=== PATIENT | male | born 1950 | race Caucasian/White ===

== ENCOUNTER 2019-05-30 11:22 | Inpatient (IN) | payer MEDICARE, MEDICAID ==
[~2019-05-30] VITALS: Ht 182.9 cm; Wt 93.6 kg
[2019-05-30 13:15] LABS: Basophils # (auto) 0 uL; Basophils % (auto) 0.5 % (0.0-2.0); Eosinophils # (auto) 0.1 uL; Eosinophils % (auto) 1.3 % (0.0-7.0); Hematocrit 42.6 % (41.0-53.0); Lymphocytes # (auto) 0.7 uL; Lymphocytes % (auto) 12.4 % (10.0-50.0); Mean Corpuscular Hemoglobin 32.3 pg (28.0-32.0); Mean Corpuscular Hgb Conc. 32.8 g/dL (32.0-36.0); Mean Corpuscular Volume 98.5 fL (80.0-100.0); Monocytes # (auto) 0.7 uL; Monocytes % (auto) 12.7 % (0.0-12.0); Neutrophils # (auto) 4.1 uL; Neutrophils % (auto) 73.1 % (37.0-80.0); Nucleated Red Blood Cells % 0.1 %; Platelet Count (auto) 282 10^3/uL (140-450); Red Blood Cells 4.33 10^6/uL (4.5-5.90); Red Cell Distribution Width 16.7 % (11.8-14.3); White Blood Cell 5.6 10^3/uL (4.4-10.8)
[2019-05-30 13:33] LABS: Albumin 3.4 g/dL (3.4-5.0); BUN/Creatinine Ratio 18.7; Calcium 8.6 mg/dL (8.5-10.1); INR 0.98 (0.9-1.15); Partial Thromboplastin Time 32.8 sec (23.64-32.05); Potassium 3.8 mmol/L (3.5-5.1)
[2019-05-30 13:36] LABS: Bilirubin, Total 0.4 mg/dL (0.2-1.0); Total Protein 7.1 g/dL (6.4-8.2)
[2019-05-30] MEDS ORDERED: MORPHINE SULF INJ 2 MG/ML SYRINGE 1ML ONE (15:14)
[2019-05-30] MEDS ORDERED: MORPHINE SULF INJ 2 MG/ML SYRINGE 1ML IM ONE (15:15)
[2019-05-30] MEDS: SODIUM CHLORIDE 0.9% 1,000 ML IV SCH (15:18)
[2019-05-30] MEDS ORDERED: NITROGLYCERIN 0.4 MG SL TAB SL PRN (15:30)
[2019-05-30] MEDS ORDERED: DEXTROSE (50%) 50ML SYRG IV PRN (15:30)
[2019-05-30] MEDS ORDERED: THIAMINE 100mg/ml INJ (200mg/2ml VIAL) IV ONE (15:30)
[2019-05-30] MEDS ORDERED: PROMETHAZINE HCL 25 MG/ML 1ML IV PRN (15:30)
[2019-05-30] MEDS ORDERED: ALBUTEROL SULF 2.5 MG/0.5ML(0.5%) NEB SOLN NEB PRN (15:30)
[2019-05-30] MEDS ORDERED: MORPHINE SULF INJ 2 MG/ML SYRINGE 1ML IV PRN (15:30)
[2019-05-30] MEDS ORDERED: ACETAMINOPHEN 500 MG TAB PO PRN (15:30)
[2019-05-30] MEDS ORDERED: LACTULOSE 20Gm/30ML SOLN PO PRN (15:30)
[2019-05-30] MEDS ORDERED: chlordiazePOXIDE HCL 25 MG CAP PO PRN (15:30)
[2019-05-30 15:57] VITALS: BP 128/74
[2019-05-30 16:31] LABS: Urine Bacteria NONE SEEN /hpf (None Seen); Urine Blood TRACE /uL (Negative); Urine Specific Gravity 1.011 (1.001-1.035); Urine WBC 1 /hpf (0 - 3)
[2019-05-30] MEDS: InsuLIN REG 1unit/0.01ml Soln (100units/ml) SC SCH ×2 (17:00→22:00)
[2019-05-30] MEDS: ACCU-CHEK COMFORT CURVE STRIP VI SCH ×2 (17:00→22:27)
[2019-05-30] MEDS: DOXYCYCLINE 100MG/250ML 250 ML IV SCH (17:11)
[2019-05-30] MEDS: chlordiazePOXIDE HCL 5 MG CAP PO SCH (18:00)
[2019-05-30] MEDS: IPRATROPIUM BROM 0.5 MG/2.5ML INH SOL NEB SCH (18:23)
[2019-05-30] MEDS: ALBUTEROL SULF 2.5 MG/0.5ML(0.5%) NEB SOLN NEB SCH (18:23)
[2019-05-30] MEDS: MORPHINE SULFATE 4 MG/ML SYR/VIAL IV PRN (20:54)
[2019-05-30 22:00] VITALS: BP 123/74
[2019-05-30 22:50] VITALS: BP 123/74
[2019-05-31] MEDS: chlordiazePOXIDE HCL 5 MG CAP PO SCH ×5 (00:03→23:17)
[2019-05-31] MEDS: HYDROcodone-ACET 5/325MG TAB PO PRN (00:03)
[2019-05-31] MEDS: ALBUTEROL SULF 2.5 MG/0.5ML(0.5%) NEB SOLN NEB SCH ×4 (00:11→18:20)
[2019-05-31] MEDS: IPRATROPIUM BROM 0.5 MG/2.5ML INH SOL NEB SCH ×4 (00:11→18:20)
[2019-05-31] MEDS: SODIUM CHLORIDE 0.9% 1,000 ML IV SCH ×3 (01:18→21:48)
[2019-05-31] MEDS: MORPHINE SULFATE 4 MG/ML SYR/VIAL IV PRN ×6 (01:32→23:17)
[2019-05-31] MEDS: DOXYCYCLINE 100MG/250ML 250 ML IV SCH ×2 (03:04→14:57)
[2019-05-31 05:00] VITALS: BP 131/84
[2019-05-31] MEDS: ACCU-CHEK COMFORT CURVE STRIP VI SCH ×4 (06:37→21:48)
[2019-05-31] MEDS: InsuLIN REG 1unit/0.01ml Soln (100units/ml) SC SCH ×4 (06:37→21:48)
[2019-05-31 08:56] VITALS: BP 158/94
[2019-05-31] MEDS: THIAMINE 100mg/ml INJ (200mg/2ml VIAL) IV SCH (10:19)
[2019-05-31 12:22] VITALS: BP 109/67
[2019-05-31 17:00] VITALS: BP 113/82
[2019-05-31 21:19] VITALS: BP 132/78
[2019-06-01] MEDS ORDERED: ALBUTEROL SULF 2.5 MG/0.5ML(0.5%) NEB SOLN ONE ×3 (00:09→10:01)
[2019-06-01] MEDS ORDERED: IPRATROPIUM BROM 0.5 MG/2.5ML INH SOL ONE ×2 (00:09→06:29)
[2019-06-01] MEDS: IPRATROPIUM BROM 0.5 MG/2.5ML INH SOL NEB SCH ×4 (00:21→17:36)
[2019-06-01] MEDS: ALBUTEROL SULF 2.5 MG/0.5ML(0.5%) NEB SOLN NEB SCH ×4 (00:21→17:36)
[2019-06-01] MEDS: DOXYCYCLINE 100MG/250ML 250 ML IV SCH ×2 (03:20→17:06)
[2019-06-01] MEDS: MORPHINE SULFATE 4 MG/ML SYR/VIAL IV PRN ×3 (04:06→21:22)
[2019-06-01 04:35] VITALS: BP 125/87
[2019-06-01] MEDS: HYDROcodone-ACET 5/325MG TAB PO PRN ×2 (05:10→12:02)
[2019-06-01] MEDS: chlordiazePOXIDE HCL 5 MG CAP PO SCH ×4 (06:00→23:37)
[2019-06-01] MEDS: ACCU-CHEK COMFORT CURVE STRIP VI SCH ×4 (06:31→21:38)
[2019-06-01] MEDS: InsuLIN REG 1unit/0.01ml Soln (100units/ml) SC SCH ×4 (06:32→21:38)
[2019-06-01] MEDS: SODIUM CHLORIDE 0.9% 1,000 ML IV SCH ×2 (07:18→17:57)
[2019-06-01 08:30] VITALS: BP 135/80
[2019-06-01] MEDS ORDERED: ceFAZolin 1GM/50ML 50 ML IV ONE (08:36)
[2019-06-01] MEDS ORDERED: SUCCINYLCHOLINE CHLORIDE 20 MG/ML 10ML VIAL IV ONE (08:45)
[2019-06-01] MEDS ORDERED: MIDAZOLAM HCL 1MG/1ML-2 ML VIAL ONE (08:46)
[2019-06-01] MEDS ORDERED: ROCURONIUM 10MG/ML 10ML VIAL IV ONE (08:46)
[2019-06-01] MEDS ORDERED: GLYCOPYRROLATE 0.2 MG/ML 1ML VIAL IV ONE (08:46)
[2019-06-01] MEDS ORDERED: NEOSTIGMINE 1 MG/ML INJ (10mg/10ML VIAL) IV ONE (08:46)
[2019-06-01] MEDS ORDERED: fentaNYL CITRATE 100 MCG/2 ML VL ONE (08:46)
[2019-06-01] MEDS ORDERED: PROPOFOL 10 MG/ML 20 ML IV ONE (08:57)
[2019-06-01] MEDS: THIAMINE 100mg/ml INJ (200mg/2ml VIAL) IV SCH (09:42)
[2019-06-01] MEDS ORDERED: ePHEDrine SULFATE 50 MG/ML AMP IV PRN (10:00)
[2019-06-01] MEDS ORDERED: hydrALAZINE HCL 20 MG/ML VL IV PRN (10:00)
[2019-06-01] MEDS ORDERED: MORPHINE SULFATE 4 MG/ML SYR/VIAL IV PRN (10:00)
[2019-06-01] MEDS ORDERED: ONDANSETRON HCL 4 MG/2 ML VIAL IV PRN (10:00)
[2019-06-01 12:52] VITALS: BP 104/61
[2019-06-01 16:45] VITALS: BP 115/79
[2019-06-01 21:56] VITALS: BP 117/74
[2019-06-02] MEDS: IPRATROPIUM BROM 0.5 MG/2.5ML INH SOL NEB SCH ×5 (01:21→23:39)
[2019-06-02] MEDS: ALBUTEROL SULF 2.5 MG/0.5ML(0.5%) NEB SOLN NEB SCH ×5 (01:21→23:39)
[2019-06-02] MEDS: MORPHINE SULFATE 4 MG/ML SYR/VIAL IV PRN ×6 (01:30→21:50)
[2019-06-02] MEDS: DOXYCYCLINE 100MG/250ML 250 ML IV SCH (03:22)
[2019-06-02] MEDS: SODIUM CHLORIDE 0.9% 1,000 ML IV SCH ×3 (03:23→21:52)
[2019-06-02] MEDS: HYDROcodone-ACET 5/325MG TAB PO PRN ×3 (04:16→17:14)
[2019-06-02 05:08] VITALS: BP 112/71
[2019-06-02] MEDS: ACCU-CHEK COMFORT CURVE STRIP VI SCH ×4 (06:20→21:53)
[2019-06-02] MEDS: chlordiazePOXIDE HCL 5 MG CAP PO SCH ×3 (06:20→17:38)
[2019-06-02] MEDS: InsuLIN REG 1unit/0.01ml Soln (100units/ml) SC SCH ×4 (06:20→22:17)
[2019-06-02 08:48] VITALS: BP 108/74
[2019-06-02] MEDS: THIAMINE 100mg/ml INJ (200mg/2ml VIAL) IV SCH (09:29)
[2019-06-02] MEDS: ENOXAPARIN SOD 40 MG/0.4 ML SYRINGE SC SCH (10:08)
[2019-06-02 10:41] VITALS: BP 108/74
[2019-06-02 10:50] LABS: Hematocrit 36.2 % (41.0-53.0); Hemoglobin 11.7 g/dL (13.5-17.5); Mean Corpuscular Hemoglobin 32.4 pg (28.0-32.0); Mean Corpuscular Hgb Conc. 32.4 g/dL (32.0-36.0); Platelet Count (auto) 196 10^3/uL (140-450); Red Blood Cells 3.61 10^6/uL (4.5-5.90); White Blood Cell 6.4 10^3/uL (4.4-10.8)
[2019-06-02 10:53] LABS: Basophils % (manual) 0 (0.0-2.0); Blast Cells 0; Eosinophils % (manual) 0 (0-7); Metamyelocytes % 0; Myelocytes % 0; Promyelocytes % 0; Reactive Lymphocytes 0
[2019-06-02 12:06] LABS: Band Neutrophils % (manual) 1; Lymphocytes % (manual) 14 (10.0-50.0); Monocytes % (manual) 15 (0-12)
[2019-06-02 12:30] VITALS: BP 113/75
[2019-06-02 17:00] VITALS: BP 136/90
[2019-06-02] MEDS: DOXYCYCLINE 100 MG TAB/CAP PO SCH (21:49)
[2019-06-02 22:00] VITALS: BP 119/78
[2019-06-02] MEDS: NICOTINE 14 MG/24HR TOPICAL PATCH TD SCH (22:16)
[2019-06-03] MEDS: MORPHINE SULFATE 4 MG/ML SYR/VIAL IV PRN ×4 (04:29→20:28)
[2019-06-03 05:00] VITALS: BP 119/72
[2019-06-03] MEDS: ALBUTEROL SULF 2.5 MG/0.5ML(0.5%) NEB SOLN NEB SCH ×3 (05:56→19:09)
[2019-06-03] MEDS: IPRATROPIUM BROM 0.5 MG/2.5ML INH SOL NEB SCH ×3 (05:56→19:09)
[2019-06-03] MEDS: chlordiazePOXIDE HCL 5 MG CAP PO SCH ×4 (06:06→17:49)
[2019-06-03] MEDS: ACCU-CHEK COMFORT CURVE STRIP VI SCH ×4 (06:08→21:43)
[2019-06-03] MEDS: InsuLIN REG 1unit/0.01ml Soln (100units/ml) SC SCH ×4 (06:15→21:43)
[2019-06-03 06:48] LABS: White Blood Cell 6.3 10^3/uL (4.4-10.8)
[2019-06-03 06:53] LABS: Hematocrit 35.6 % (41.0-53.0); Hemoglobin 11.5 g/dL (13.5-17.5); Mean Corpuscular Hemoglobin 33.2 pg (28.0-32.0); Mean Corpuscular Hgb Conc. 32.2 g/dL (32.0-36.0); Mean Corpuscular Volume 103.1 fL (80.0-100.0); Platelet Count (auto) 219 10^3/uL (140-450); Red Blood Cells 3.45 10^6/uL (4.5-5.90); Red Cell Distribution Width 15.9 % (11.8-14.3)
[2019-06-03 06:56] LABS: Band Neutrophils % (manual) 0; Basophils % (manual) 0 (0.0-2.0); Blast Cells 0; Metamyelocytes % 0; Myelocytes % 0; Promyelocytes % 0; Reactive Lymphocytes 0
[2019-06-03 07:32] LABS: Eosinophils % (manual) 1 (0-7); Lymphocytes % (manual) 11 (10.0-50.0); Monocytes % (manual) 15 (0-12)
[2019-06-03 08:53] VITALS: BP 102/66
[2019-06-03] MEDS: SODIUM CHLORIDE 0.9% 1,000 ML IV SCH ×2 (09:18→19:18)
[2019-06-03] MEDS: NICOTINE 14 MG/24HR TOPICAL PATCH TD SCH (10:25)
[2019-06-03] MEDS: DOXYCYCLINE 100 MG TAB/CAP PO SCH (10:26)
[2019-06-03] MEDS: ENOXAPARIN SOD 40 MG/0.4 ML SYRINGE SC SCH (10:26)
[2019-06-03] MEDS: THIAMINE HCL 100 MG TAB PO SCH (10:26)
[2019-06-03 13:00] VITALS: BP 125/77
[2019-06-03 17:00] VITALS: BP 117/66
[2019-06-03] MEDS: HYDROcodone-ACET 5/325MG TAB PO PRN (17:05)
[2019-06-03 22:00] VITALS: BP 109/76
[2019-06-04] MEDS: ALBUTEROL SULF 2.5 MG/0.5ML(0.5%) NEB SOLN NEB SCH ×3 (00:25→12:22)
[2019-06-04] MEDS: IPRATROPIUM BROM 0.5 MG/2.5ML INH SOL NEB SCH ×3 (00:25→12:22)
[2019-06-04] MEDS: chlordiazePOXIDE HCL 5 MG CAP PO SCH ×3 (00:29→12:40)
[2019-06-04] MEDS: HYDROcodone-ACET 5/325MG TAB PO PRN ×3 (00:30→16:05)
[2019-06-04] MEDS: MORPHINE SULFATE 4 MG/ML SYR/VIAL IV PRN ×3 (02:16→10:57)
[2019-06-04 05:00] VITALS: BP 118/81
[2019-06-04] MEDS: ACCU-CHEK COMFORT CURVE STRIP VI SCH ×2 (06:07→12:30)
[2019-06-04] MEDS: InsuLIN REG 1unit/0.01ml Soln (100units/ml) SC SCH ×2 (06:10→12:40)
[2019-06-04] MEDS: SODIUM CHLORIDE 0.9% 1,000 ML IV SCH (06:34)
[2019-06-04 06:36] LABS: Hematocrit 34.6 % (41.0-53.0); Hemoglobin 11.3 g/dL (13.5-17.5); Mean Corpuscular Hemoglobin 32.5 pg (28.0-32.0); Mean Corpuscular Hgb Conc. 32.7 g/dL (32.0-36.0); Mean Corpuscular Volume 99.2 fL (80.0-100.0); Platelet Count (auto) 246 10^3/uL (140-450); Red Blood Cells 3.49 10^6/uL (4.5-5.90); Red Cell Distribution Width 15.9 % (11.8-14.3); White Blood Cell 5.7 10^3/uL (4.4-10.8)
[2019-06-04 06:41] LABS: Basophils % (manual) 0 (0.0-2.0); Blast Cells 0; Metamyelocytes % 0; Myelocytes % 0; Promyelocytes % 0; Reactive Lymphocytes 0
[2019-06-04 09:00] VITALS: BP 107/70
[2019-06-04 09:07] LABS: Band Neutrophils % (manual) 1; Eosinophils % (manual) 5 (0-7); Lymphocytes % (manual) 14 (10.0-50.0); Monocytes % (manual) 15 (0-12)
[2019-06-04] MEDS: NICOTINE 14 MG/24HR TOPICAL PATCH TD SCH (09:43)
[2019-06-04] MEDS: THIAMINE HCL 100 MG TAB PO SCH (09:43)
[2019-06-04] MEDS: ENOXAPARIN SOD 40 MG/0.4 ML SYRINGE SC SCH (09:44)
[2019-06-04 13:00] VITALS: BP 110/67
== END 2019-06-04 16:25 | DRG 481 ==
LOC: EDBD 11:22 → ER 11:22 → OVERFLOW 11:23 → CENTRAL 20:16 → TELE-CENTR 06-01 21:59
PROVIDERS: ADMIT Internal Medicine; ATTEND Family Medicine
PROC: 0QS704Z Reposition Left Upper Femur with Internal Fixation Device, Open Approach (ICD-10-PCS; principal; 2019-06-01 08:46)
DX: S72.142A Displaced intertrochanteric fracture of left femur, initial encounter for closed fracture (principal); J44.1 Chronic obstructive pulmonary disease with (acute) exacerbation; I48.20 Chronic atrial fibrillation, unspecified; E11.9 Type 2 diabetes mellitus without complications; I10 Essential (primary) hypertension; I25.10 Atherosclerotic heart disease of native coronary artery without angina pectoris; E78.5 Hyperlipidemia, unspecified; I70.90 Unspecified atherosclerosis; W18.39XA Other fall on same level, initial encounter; Y93.89 Activity, other specified; Y92.89 Other specified places as the place of occurrence of the external cause; Y99.8 Other external cause status; Z85.46 Personal history of malignant neoplasm of prostate; Z79.899 Other long term (current) drug therapy; Z87.891 Personal history of nicotine dependence
CPT/HCPCS: 36415; 51702; 71045; 73502; 73700; 76000; 80053; 81001; 82962; 83036; 85007; 85025; 85027; 85610; 85730; 86850; 86900; 86901; 87804; 93005; 93306; 94640; 96372; 96374; 97110; 97116; 97163; 97530; A4565; C1713; C1769; G0378; J0330; J0690; J1815; J2250; J2704; J3490